=== PATIENT | female | born 1995 | race Caucasian/White ===

== ENCOUNTER 2018-10-31 16:55 | Emergency (ER) | payer OTHER ==
[2018-10-31 17:02] VITALS: TEMP 97.7; BMI 29.2
--- NOTE | 2018-10-31 17:15 | PDOC ---
History of Present Illness - General Chief Complaint: Nausea/Vomiting Stated Complaint: NAUSEA/VOMITING/6 WKS Time Seen by Provider: 10/31/18 17:15 History Source: Patient Exam Limitations: No Limitations - History of Present Illness Initial Comments: HPI: 23 y/o female presenting to [facility] ER complaining of nausea, vomiting, and abdominal pain since yesterday. Pain is localized to RUQ without radiation. Worse with PO intake, better after vomiting. Emesis described as nonbloody and nonbilious. No history of similar. Pt is 5 weeks 2 days by LMP (2017). Pt completed 7 days of penicillin for UTI yesterday. Denies vaginal bleeding, dysuria, or hematuria. OB History: A1, spontaneous at 3-4 weeks OB: Dr. Adams in [place], [place] Social Hx: - EtOH: Denies - Tobacco: Everyday smoker, 7 cigerettes - Street Drugs: Denies active use, h/o opiate abuse, outpatient rehab x2 years, managed with Buprenorphine (Subutex) Medical Hx: - H/o Opiate Abuse - IBS Surgical Hx: - S/p L breast lumpectomy - Tonsillectomy Past History - Past Medical History Allergies/Adverse Reactions: Allergies Allergy/AdvReac Type Severity Reaction Status Date / Time No Known Allergies Allergy Verified 10/31/18 18:14 Home Medications: Ambulatory Orders NK [No Known Home Medication] 10/31/18 COPD: No - Immunization History Immunization Up to Date: Yes - Suicide/Smoking/Psychosocial Hx Smoking History: Current every day smoker Number of Cigarettes Smoked Daily: 6 Information on smoking cessation initiated: No Hx Alcohol Use: No Drug/Substance Use Hx: No Review of Systems - Review of Systems Able to Perform ROS?: Yes Comments:: In addition to that documented in the HPI above, the additional ROS was obtained : Constitutional: Endorses chills. Denies fevers Eyes: Denies vision changes ENMT: Denies sore throat CV: Denies chest pain Resp: Denies SOB GI: Endorses vomiting. Denies diarrhea : Denies painful urination or vaginal bleeding MSK: Denies recent trauma Skin: Denies new rashes Neuro: Denies new numbness or tingling or weakness Endocrine: Endorses polyuria Heme: Denies bleeding or bruising *Physical Exam - Vital Signs Last Vital Signs Temp Pulse Resp BP Pulse Ox 97.7 F 83 16 119/67 100 10/31/18 16:59 10/31/18 16:59 10/31/18 16:59 10/31/18 16:59 10/31/18 16:59 - Physical Exam Comments: Constitutional: Well-developed, well-nourished female in no acute distress but moderate discomfort. Found sitting upright on hospital hallway bed. Alert and oriented x4. Answered all questions appropriately and completely. Speech was non -labored, non-pressured. Head: Normocephalic. No obvious external signs of trauma. Eyes: Pupils 3mm and PERRL bilaterally. Sclerae white. Conjunctiva moist and not injected. EARS: Hearing grossly intact. NOSE: No nasal discharge. THROAT: Oral cavity and pharynx normal. No inflammation, swelling, exudate, or lesions. Teeth and gingiva in good general condition. Moist mucosal membrane. Neck: Supple, trachea is midline. Cardiovascular: Regular rate and regular rhythm. No murmur, rubs, clicks, or gallops. Peripheral pulses: Radial pulses full. Respiratory: Breathing unlabored. Equal chest rise and fall. Clear to auscultation bilaterally. No stridor, no wheezing, no rhonchi. Gastrointestinal: abdomen is tender in RUQ with positive [place] sign and grimace. No rebound or guarding. Globally, abdomen is soft and nondistended. No pulsatile masses. No overlying skin lesions or obvious signs of trauma. Neuro: Alert and oriented. Moving all four extremities spontaneously. Skin: Warm, dry, and intact. : No R or L CVA tenderness. Psych: Affect: appropriate. Mood: normal. Moderate Sedation - Procedure Monitoring Vital Signs: Procedure Monitoring Vital Signs Temperature 97.7 F 10/31/18 16:59 Pulse Rate 83 10/31/18 16:59 Respiratory Rate 16 10/31/18 16:59 Blood Pressure 119/67 10/31/18 16:59 O2 Sat by Pulse Oximetry (%) 100 10/31/18 16:59 ED Treatment Course - LABORATORY CBC & Chemistry Diagram: 10/31/18 18:10 10/31/18 18:10 Medical Decision Making - Medical Decision Making *Reviewed vital signs, nursing notes, and prior visit documentation (if available). 23 y/o female A1 at 5W2D by LMP complaining of RUQ abdominal pain with nausea/vomiting since yesterday. Afebrile. Vitals unremarkable for hypotension or tachycardia. Positive Kwon on physical. Appears well hydrated. Suspect hyperemesis gravidarum versus biliary colic. D/D includes but not limited to pancreatitis, hepatitis, gastritis, PUD. Will obtain CBC, CMP, Lipase, Beta-quant, UA, urine culture, RUQ U/S, and transvaginal U/S to eval . Ordered B6 and D5LR IVFB for symptom relief. Did not order T/S as pt denies vaginal bleeding and is not local to the area. 10/31/18 19:11 Pt signed out to resident Dr. Carvalho after she was verbally appraised of the pts HPI, current ED course, and plan of management. Will follow up on pending labs, UA, and ultrasounds. Dispo dependent on results. *DC/Admit/Observation/Transfer Diagnosis at time of Disposition: Vomiting affecting - Discharge Dispostion Condition at time of disposition: Stable - Referrals Referrals: ON STAFF,NOT [Primary Care Provider] - - Patient Instructions - Post Discharge Activity
[2018-10-31] MEDS ORDERED: PYRIDOXINE HCL (B-6) 50 MG TABLET (FP) PO ONE (18:03)
--- NOTE | 2018-10-31 18:07 | PDOC ---
Attending Attestation - HPI HPI: 10/31/18 19:05 23 year old female a1 (spontaneous ), 5 weeks , with history of opiate abuse, who presents to the ED with localized right upper quadrant pain since last night. Reports pain is 4/10, localized and is accompanied with nausea and non-bloody, non-bilious emesis. She denies any vaginal bleeding or discharge. Denies any recorded fevers, but reports associated chills. - Physicial Exam PE: 10/31/18 19:05 GENERAL: Awake, alert, and fully oriented, in no acute distress LUNGS: Breath sounds equal, clear to auscultation bilaterally. HEART: Regular rate and rhythm ABDOMEN: Soft, (+) RUQ tenderness on palpation, normoactive bowel sounds. No guarding, no rebound. No masses EXTREMITIES: Normal range of motion, no edema. NEUROLOGICAL: Cranial nerves II through XII grossly intact. Normal speech, normal gait SKIN: Warm, Dry, normal turgor, no rashes or lesions noted. - Medical Decision Making 10/31/18 19:06 Documentation prepared by Gem Gurrola, acting as esthetician and manager medical spa for Ellie Mojica MD. <Gem Gurrola - Last Filed: 10/31/18 19:05> - Resident Resident Name: Miguel Jordan - ED Attending Attestation I have performed the following: I have examined & evaluated the patient, The case was reviewed & discussed with the resident, I agree w/resident's findings & plan, Exceptions are as noted - Medical Decision Making 10/31/18 18:41 Laboratory Tests 10/31/18 18:10 WBC 10.9 H Hgb 14.0 Hct 39.5 Plt Count 306 Neutrophils % 75.2 Lymphocytes % 19.4 10/31/18 19:53 Laboratory Tests 10/31/18 10/31/18 10/31/18 18:10 18:10 18:17 WBC 10.9 H Hgb 14.0 Hct 39.5 Plt Count 306 Sodium 138 Potassium 4.2 Chloride 106 Carbon Dioxide 27 BUN 9 Creatinine 0.6 Random Glucose 94 AST 11 L ALT 17 Lipase 54 L Beta HCG, Quant 33299.3 Urine Ketones Trace H Urine Blood Negative Urine Nitrite Positive Ur Leukocyte Esterase Trace Urine WBC (Auto) 38 Urine RBC (Auto) 11 Urine Bacteria Moderate Urine Yeast Many UA demonstrates UTI Pending US 10/31/18 21:57 US demonstrates no PCCF, GB wall thickening, No CBD dilitation TVUS single live IUP, 5 weeks 4 days, FHR 110s Pt feels better Will plan to discharge Clinical impression: Hyperemesis gravidarium, initial presentation <Ellie Mojica - Last Filed: 10/31/18 21:57>
[2018-10-31] MEDS ORDERED: DEXTROSE 5%-LACTATED RINGERS 1,000 ML IV SCH (18:15)
[2018-10-31 18:24] LABS: BASO % 0.8 % (0-2.0); EOS % 0.6 % (0-4.5); HEMATOCRIT 39.5 % (32.4-45.2); LYMPH % 19.4 % (8-40); MCH 30.6 pg (25.7-33.7); MCHC 35.5 g/dl (32.0-36.0); MEAN CELL VOLUME 86.2 fl (80-96); MEAN PLT VOLUME 7.5 fl (7.5-11.1); NEUT % 75.2 % (42.8-82.8); PLATELET COUNT 306 K/MM3 (134-434); RBC 4.58 M/mm3 (3.60-5.2); RDW 13.2 % (11.6-15.6); WHITE BLOOD COUNT 10.9 K/mm3 (4.0-10.0)
[2018-10-31 18:58] LABS: URINE APPEARANCE TURBID; URINE BILIRUBIN NEGATIVE (<2.0 mg/dL); URINE COLOR DKYELLOW; URINE GLUCOSE (UA) NEGATIVE (NEGATIVE); URINE KETONE TRACE (NEGATIVE); URINE LEUK ESTERASE TRACE (NEGATIVE); URINE NITRITE POSITIVE (NEGATIVE); URINE PROTEIN 2+ (NEGATIVE); URINE UROBILINOGEN NEGATIVE mg/dL (0.2-1.0)
[2018-10-31 19:08] LABS: EPI CELLS RARE /HPF (FEW); URINE BACTERIA MODERATE /hpf (NONE SEEN); YEAST MANY
--- NOTE | 2018-10-31 19:10 | PDOC ---
*Physical Exam - Vital Signs Last Vital Signs Temp Pulse Resp BP Pulse Ox 97.7 F 83 16 119/67 100 10/31/18 16:59 10/31/18 16:59 10/31/18 16:59 10/31/18 16:59 10/31/18 16:59 ED Treatment Course - LABORATORY CBC & Chemistry Diagram: 10/31/18 18:10 10/31/18 18:10 - ADDITIONAL ORDERS Additional order review: Laboratory Results 10/31/18 18:17 Urine Color Dkyellow Urine Appearance Turbid Urine pH 9.0 H Ur Specific [place] 1.020 Urine Protein 2+ H Urine Glucose (UA) Negative Urine Ketones Trace H Urine Blood Negative Urine Nitrite Positive Urine Bilirubin Negative Urine Urobilinogen Negative Ur Leukocyte Esterase Trace Urine WBC (Auto) 38 Urine RBC (Auto) 11 Ur Epithelial Cells Rare Urine Bacteria Moderate Urine Yeast Many 10/31/18 18:10 RBC 4.58 MCV 86.2 MCHC 35.5 RDW 13.2 MPV 7.5 Neutrophils % 75.2 Lymphocytes % 19.4 Monocytes % 4.0 Eosinophils % 0.6 Basophils % 0.8 Medical Decision Making - Medical Decision Making Patient still endorsing nausea and vomiting. Reglan 10 ordered. UA positive for infection, 1g Rocephin ordered 10/31/18 21:10 Patient reporting feeling warm. Temperature check is 98.4 Discharge pending passing Po challenge 10/31/18 21:57 Passed po challenge. Prescriptions for keflex sent to pharmacy Plan to discharge 10/31/18 22:15 *DC/Admit/Observation/Transfer Diagnosis at time of Disposition: Vomiting affecting - Discharge Dispostion Disposition: HOME Condition at time of disposition: Stable - Prescriptions Prescriptions: Cephalexin [Keflex] 500 mg PO BID #14 capsule Metoclopramide HCl [Reglan] 10 mg PO PRN PRN #15 tablet PRN Reason: Nausea - Referrals Referrals: ON STAFF,NOT [Primary Care Provider] - - Patient Instructions Printed Discharge Instructions: DI for Morning Sickness Additional Instructions: You came into the ED for nausea, vomiting, and abdominal pain. Our workup shows your have a urinary tract infection. Ultrasound imaging did not show acute pathology. A copy of the ultrasound reports has been given to you. Prescription sent to your pharmacy. Keflex: Take 1 tablet twice a day for seven days Reglan: Take 1 tablet as needed for nausea/vomiting, may repeat after 4 to 6 hours if needed Follow-up with your primary care doctor this week to discuss this ED visit and to further evaluate your symptoms. Follow-up with your bolt header doctor to monitor your . Ultrasound confirmed you have an intrauterine with a heart beat. Your hormone level (beta-hcg) was 19010.3 today. Immediate medical attention is required if you have: you develop worsening pain , high fevers, persistent nausea, vomiting, or any new or concerning symptoms. If you think you are having an emergency, call for emergency medical services or present to the emergency department right away. - Post Discharge Activity Forms/Work/School Notes: Back to Work
[2018-10-31 19:35] LABS: ALBUMIN 3.9 g/dl (3.4-5.0); ALK PHOS 70 U/L (45-117); ANION GAP 6 MMOL/L (8-16); BILIRUBIN,TOTAL 0.4 mg/dL (0.2-1); BLOOD UREA NITROGEN 9 mg/dL (7-18); CALCIUM 9.4 mg/dL (8.5-10.1); CHLORIDE 106 mmol/L (98-107); CO2 27 mmol/L (21-32); CREATININE 0.6 mg/dL (0.55-1.3); GLUCOSE,RANDOM 94 mg/dL (74-106); LIPASE 54 U/L (73-393); POTASSIUM 4.2 mmol/L (3.5-5.1); SGOT/AST 11 U/L (15-37); SGPT/ALT 17 U/L (13-61); SODIUM 138 mmol/L (136-145); TOT PROT 6.8 g/dl (6.4-8.2)
[2018-10-31] MEDS ORDERED: CEFTRIAXONE 1,000 MG in DEXTROSE 5%-WATER - 50 ML IVPB ONE (20:33)
[2018-10-31] MEDS ORDERED: METOCLOPRAMIDE HCL INJECTION 10 MG/2 ML VIAL IVPUSH ONE (20:33)
[2018-10-31] MEDS ORDERED: CEFTRIAXONE 1 GM/50 ML BAG ONE (21:09)
[2018-10-31] MEDS ORDERED: METOCLOPRAMIDE HCL INJECTION 10 MG/2 ML VIAL ONE (21:09)
[2018-10-31 22:33] VITALS: BP 122/78; PULSE 80
== END 2018-10-31 22:17 | disposition home or self-care (01) ==
LOC: JER 16:55
PROC: 3E03329 Introduction of Other Anti-infective into Peripheral Vein, Percutaneous Approach (ICD-10-PCS; principal; 2018-10-31)
PROC: 3E033GC Introduction of Other Therapeutic Substance into Peripheral Vein, Percutaneous Approach (ICD-10-PCS; 2018-10-31)
DX: O26.891 Other specified pregnancy related conditions, first trimester (principal); O21.0 Mild hyperemesis gravidarum; Z3A.01 Less than 8 weeks gestation of pregnancy; O23.41 Unspecified infection of urinary tract in pregnancy, first trimester
CPT/HCPCS: 36415; 76705-TC; 76817-TC; 80053; 81003; 81015; 83690; 84702; 85025; 87086; 87186; 99283-25